=== PATIENT | male | born 1980 | race Caucasian/White ===

== ENCOUNTER 2016-12-24 20:31 | Observation (INO) | payer BC, OTHER ==
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
[2016-12-24] MEDS ORDERED: Sodium Chloride 0.9% 1,000 ML IV SCH (20:45)
[2016-12-24] MEDS ORDERED: Iopamidol 755 Mg/ML 100 ML Bottle IVPUSH STA (20:55)
[2016-12-24 21:09] LABS: CHLORIDE,CL 107 mmol/L (98-110); SODIUM,NA 139 mmol/L (136-146)
[2016-12-24] MEDS ORDERED: Acetaminophen/HYDROcodone 325-5 MG Tab PO PRN (23:13)
[2016-12-24] MEDS ORDERED: Morphine 10 MG/ML Syringe IVPUSH PRN (23:13)
[2016-12-24] MEDS ORDERED: Sodium Chloride 0.9% 10 ML Syringe FLUSH PRN (23:14)
[2016-12-24] MEDS ORDERED: Sodium Chloride 0.9% 2.5 ML Syringe FLUSH PRN (23:14)
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
[2016-12-24] MEDS: Cyclobenzaprine 10 MG Tab PO SCH (23:48)
[2016-12-25 08:23] VITALS: BP 124/81
[2016-12-25] MEDS: Cyclobenzaprine 10 MG Tab PO SCH (08:32)
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
== END 2016-12-25 12:00 | disposition home or self-care (01) ==
LOC: MW.ED 20:31 → MW.MS 21:27
PROVIDERS: ADMIT Surgery; ATTEND Surgery
DX: F10.920 Alcohol use, unspecified with intoxication, uncomplicated (principal); T14.90 Injury, unspecified; F17.210 Nicotine dependence, cigarettes, uncomplicated; V89.2XXA Person injured in unspecified motor-vehicle accident, traffic, initial encounter; Y90.8 Blood alcohol level of 240 mg/100 ml or more; Z88.1 Allergy status to other antibiotic agents
CPT/HCPCS: 36415; 70450; 71260; 72125; 74177; 80053; 82150; 83690; 85025; 93005; 96360; 99285; A9270; G0378; G0480; J7040; 99283; G0390